=== PATIENT | female | born 1985 | race Caucasian/White ===

== ENCOUNTER 2019-07-04 15:15 | Outpatient (CLI) | payer OTHER ==
[2019-07-04 15:55] LABS: ABSOLUTE EOSINOPHILS # (AUTO) 0.1 10^3/uL (0.0-0.6); ABSOLUTE LYMPHOCYTES (AUTO) 1.9 10^3/uL (0.5-4.7); ABSOLUTE MONOCYTES (AUTO) 0.6 10^3/uL (0.1-1.4); ABSOLUTE NEUT (AUTO) 8.4 10^3/uL (1.7-8.2); BASOPHILS % (AUTO) 0.4 % (0-2); EOSINOPHILS % (AUTO) 0.5 % (0-6); HEMOGLOBIN 12.4 g/dL (12.0-15.5); LYMPHOCYTES % (AUTO) 16.9 % (13-45); MEAN CORPUSCULAR HEMOGLOBIN 30.5 pg (27.0-33.4); MEAN CORPUSCULAR HGB CONC 35.6 g/dL (32.0-36.0); MEAN CORPUSCULAR VOLUME 86 fl (80-97); MONOCYTES % (AUTO) 5.8 % (3-13); PLATELET COUNT 289 10^3/uL (150-450); RED BLOOD COUNT 4.08 10^6/uL (3.72-5.28); RED CELL DISTRIBUTION WIDTH 12.8 % (11.5-14.0); SEGMENTED NEUTROPHILS % (AUTO) 76.4 % (42-78); TOTAL CELLS COUNTED % (AUTO) 100 %
[2019-07-04 15:56] LABS: APPEARANCE,URINE SLIGHTLY-CLOUDY; BILIRUBIN,URINE NEGATIVE (NEGATIVE); CALCIUM OXALATE CRYSTALS,URINE MODERATE /HPF; COLOR,URINE YELLOW; GLUCOSE, URINE 50 mg/dL (NEGATIVE); KETONES,URINE NEGATIVE (NEGATIVE); LEUKOCYTE ESTERASE,URINE NEGATIVE (NEGATIVE); NITRITE,URINE NEGATIVE (NEGATIVE); PROTEIN,URINE NEGATIVE (NEGATIVE); URINE SPECIFIC GRAVITY 1.021
[2019-07-04 16:14] LABS: URINE AMPHETAMINES SCREEN NEGATIVE; URINE BARBITURATES SCREEN NEGATIVE; URINE BENZODIAZEPINES SCREEN NEGATIVE; URINE COCAINE SCREEN NEGATIVE; URINE MARIJUANA (THC) SCREEN NEGATIVE; URINE METHADONE SCREEN NEGATIVE; URINE PHENCYCLIDINE SCREEN NEGATIVE
[2019-07-04 16:14] LABS: ALBUMIN 3.1 g/dL (3.5-5.0); ALKALINE PHOSPHATASE 115 U/L (38-126); ANION GAP 8 (5-19); ASPARTATE AMINO TRANSFERASE 21 U/L (14-36); BILIRUBIN,TOTAL 0.5 mg/dL (0.2-1.3); BLOOD UREA NITROGEN 10 mg/dL (7-20); CALCIUM 9.3 mg/dL (8.4-10.2); CARBON DIOXIDE 20 mmol/L (22-30); CHLORIDE 105 mmol/L (98-107); GLUCOSE 95 mg/dL (75-110); URIC ACID 4.9 mg/dL (2.5-6.2)
[2019-07-04 17:38] LABS: UR PRO/CREAT RATIO RESULT 0.1 mg/mg (0.0-0.2); URINE CREATININE 148.8 mg/dL (16-327); URINE PROTEIN 14.9 mg/dL (<12)
== END 2019-07-04 17:49 | disposition home or self-care (01) ==
LOC: LC 15:15
PROVIDERS: ATTEND Obstetrics & Gynecology
DX: O16.3 Unspecified maternal hypertension, third trimester (principal); Z3A.34 34 weeks gestation of pregnancy
CPT/HCPCS: 36415; 59025; 80053; 80307; 81001; 82570; 83615; 84156; 84550; 85025

== ENCOUNTER 2019-07-08 16:02 | Outpatient (CLI) | payer OTHER ==
--- NOTE | 2019-07-08 18:39 | Non Stress Test Report ---
Non Stress Test Datetime Report Generated by CPN: 07/08/2019 18:39 DEMOGRAPHIC Test Number: 2 Test Number: 1 EGA NST: 35.1 EGA NST: 34.4 INDICATION Indication for Study (NST) Other: Labor check order by physician; Pree workup; IUP 34.4 VITAL SIGNS Temperature - NST: 98.3 Temperature - NST: 98.2 Pulse - NST: 90 Pulse - NST: 96 RESP - NST: 16 RESP - NST: 18 NBPSYS NST: 131 NBPSYS NST: 126 NBPDIA NST: 82 NBPDIA NST: 76 MONITORING Monitor Explained: Monitor Explained; Test Explained; Patient Verbalized Understanding Monitor Explained: Monitor Explained; Test Explained; Patient Verbalized Understanding Time on Monitor: 07/08/2019 16:23 Time on Monitor: 07/04/2019 15:49 Time off Monitor: 07/08/2019 17:59 Time off Monitor: 07/04/2019 16:45 NST Duration: 96 NST Duration: 56 NST INTERVENTIONS NST Interventions: PO Hydration NST Interventions: PO Hydration Physician Notified NST: NRobertson,CNM Physician Notified NST: A. Hewitt, CNM BABY A: [id number] BABY A Movement : Present Movement : Present Contraction Frequency : None Contraction Frequency : 0 FHR Baseline : 145 FHR Baseline : 140 Accelerations : 15X15 Accelerations : 15X15 Decelerations : None Decelerations : None Variability : Moderate 6-25bpm Variability : Moderate 6-25bpm NST Review: Meets Criteria for Reactive NST NST Review: Questionable if Meets Criteria for Reactive NST NST Review and Verified By : Kristen Lantigua RN NST Review and Verified By : Chris LAUREANO Results: Reactive NST Results: Reactive NST REPORT Report Trigger: Send Report
== END 2019-07-08 17:09 | disposition home or self-care (01) ==
LOC: LC 16:02
PROVIDERS: ATTEND Obstetrics & Gynecology
DX: O13.3 Gestational [pregnancy-induced] hypertension without significant proteinuria, third trimester (principal); Z3A.34 34 weeks gestation of pregnancy
CPT/HCPCS: 59025

== ENCOUNTER 2019-07-12 12:54 | Outpatient (CLI) | payer OTHER ==
[2019-07-12] MEDS ORDERED: BETAMET ACET/BETAMET NA INJ 6 MG/1 ML ONE (13:06)
[2019-07-12] MEDS ORDERED: BETAMET ACET/BETAMET NA INJ 6 MG/1 ML IM ONE (13:10)
[2019-07-12 13:46] LABS: ABSOLUTE BASOPHILS # (AUTO) 0.1 10^3/uL (0.0-0.2); ABSOLUTE LYMPHOCYTES (AUTO) 1.7 10^3/uL (0.5-4.7); BASOPHILS % (AUTO) 0.5 % (0-2); EOSINOPHILS % (AUTO) 0.3 % (0-6); HEMOGLOBIN 12.5 g/dL (12.0-15.5); RED CELL DISTRIBUTION WIDTH 13.1 % (11.5-14.0); TOTAL CELLS COUNTED % (AUTO) 100 %
[2019-07-12 13:48] LABS: APPEARANCE,URINE SLIGHTLY-CLOUDY; BILIRUBIN,URINE NEGATIVE (NEGATIVE); CALCIUM OXALATE CRYSTALS,URINE RARE /HPF; COLOR,URINE YELLOW; GLUCOSE, URINE NEGATIVE (NEGATIVE); KETONES,URINE 80 mg/dL (NEGATIVE); LEUKOCYTE ESTERASE,URINE TRACE (NEGATIVE); NITRITE,URINE NEGATIVE (NEGATIVE); PROTEIN,URINE NEGATIVE (NEGATIVE); URINE SPECIFIC GRAVITY 1.014; UROBILINOGEN,URINE NEGATIVE mg/dL (<2.0)
[2019-07-12 14:04] LABS: URINE AMPHETAMINES SCREEN NEGATIVE; URINE BARBITURATES SCREEN NEGATIVE; URINE BENZODIAZEPINES SCREEN NEGATIVE; URINE COCAINE SCREEN NEGATIVE; URINE MARIJUANA (THC) SCREEN NEGATIVE; URINE METHADONE SCREEN NEGATIVE; URINE PHENCYCLIDINE SCREEN NEGATIVE
[2019-07-12 14:05] LABS: ABSOLUTE MONOCYTES (AUTO) 0.5 10^3/uL (0.1-1.4); ABSOLUTE NEUT (AUTO) 10.9 10^3/uL (1.7-8.2); HEMATOCRIT 35.4 % (36.0-47.0); MEAN CORPUSCULAR HEMOGLOBIN 29.9 pg (27.0-33.4); MEAN CORPUSCULAR HGB CONC 35.2 g/dL (32.0-36.0); MEAN CORPUSCULAR VOLUME 85 fl (80-97); MONOCYTES % (AUTO) 3.5 % (3-13); PLATELET COUNT 258 10^3/uL (150-450); RED BLOOD COUNT 4.17 10^6/uL (3.72-5.28); SEGMENTED NEUTROPHILS % (AUTO) 82.7 % (42-78); WHITE BLOOD COUNT 13.1 10^3/uL (4.0-10.5)
[2019-07-12 14:08] LABS: UR PRO/CREAT RATIO RESULT 0.3 mg/mg (0.0-0.2); URINE CREATININE 72.5 mg/dL (16-327); URINE PROTEIN 18.7 mg/dL (<12)
[2019-07-12 14:11] LABS: ALBUMIN 3.2 g/dL (3.5-5.0); ALKALINE PHOSPHATASE 132 U/L (38-126); ANION GAP 9 (5-19); ASPARTATE AMINO TRANSFERASE 25 U/L (14-36); BILIRUBIN,TOTAL 0.7 mg/dL (0.2-1.3); BLOOD UREA NITROGEN 14 mg/dL (7-20); CALCIUM 9.6 mg/dL (8.4-10.2); CARBON DIOXIDE 19 mmol/L (22-30); CHLORIDE 103 mmol/L (98-107); GLUCOSE 84 mg/dL (75-110); POTASSIUM 4.4 mmol/L (3.6-5.0); TOTAL PROTEIN 6.6 g/dL (6.3-8.2); URIC ACID 5.4 mg/dL (2.5-6.2)
[2019-07-12 16:12] LABS: CHLAM PCR NOT DETECTED (NOT DETECT)
== END 2019-07-12 14:28 | disposition home or self-care (01) ==
LOC: LC 12:54
PROVIDERS: ATTEND Obstetrics & Gynecology
DX: O13.3 Gestational [pregnancy-induced] hypertension without significant proteinuria, third trimester (principal); Z3A.35 35 weeks gestation of pregnancy
CPT/HCPCS: 36415; 83615; 84156; 84550; 82570; 85025; 80053; 81001; 87081; 80307; 87491; 87591; 59025; J0702; 96372

== ENCOUNTER 2019-07-20 17:58 | Outpatient (CLI) | payer OTHER ==
[2019-07-20 18:56] LABS: APPEARANCE,URINE SLIGHTLY-CLOUDY; BILIRUBIN,URINE NEGATIVE (NEGATIVE); COLOR,URINE YELLOW; GLUCOSE, URINE NEGATIVE (NEGATIVE); KETONES,URINE 80 mg/dL (NEGATIVE); LEUKOCYTE ESTERASE,URINE NEGATIVE (NEGATIVE); NITRITE,URINE NEGATIVE (NEGATIVE); PROTEIN,URINE NEGATIVE (NEGATIVE); URINE SPECIFIC GRAVITY 1.013; UROBILINOGEN,URINE NEGATIVE mg/dL (<2.0)
[2019-07-20 19:00] LABS: ABSOLUTE BASOPHILS # (AUTO) 0.1 10^3/uL (0.0-0.2); ABSOLUTE EOSINOPHILS # (AUTO) 0.1 10^3/uL (0.0-0.6); ABSOLUTE LYMPHOCYTES (AUTO) 2.3 10^3/uL (0.5-4.7); ABSOLUTE MONOCYTES (AUTO) 0.6 10^3/uL (0.1-1.4); BASOPHILS % (AUTO) 0.5 % (0-2); EOSINOPHILS % (AUTO) 0.7 % (0-6); HEMATOCRIT 35.9 % (36.0-47.0); HEMOGLOBIN 12.2 g/dL (12.0-15.5); LYMPHOCYTES % (AUTO) 20.9 % (13-45); MEAN CORPUSCULAR HEMOGLOBIN 29.2 pg (27.0-33.4); MEAN CORPUSCULAR HGB CONC 34.1 g/dL (32.0-36.0); MEAN CORPUSCULAR VOLUME 86 fl (80-97); MONOCYTES % (AUTO) 5.5 % (3-13); PLATELET COUNT 268 10^3/uL (150-450); RED BLOOD COUNT 4.18 10^6/uL (3.72-5.28); RED CELL DISTRIBUTION WIDTH 13.4 % (11.5-14.0); SEGMENTED NEUTROPHILS % (AUTO) 72.4 % (42-78); TOTAL CELLS COUNTED % (AUTO) 100 %; WHITE BLOOD COUNT 11.1 10^3/uL (4.0-10.5)
[2019-07-20 19:10] LABS: URINE AMPHETAMINES SCREEN NEGATIVE; URINE BARBITURATES SCREEN NEGATIVE; URINE BENZODIAZEPINES SCREEN NEGATIVE; URINE COCAINE SCREEN NEGATIVE; URINE MARIJUANA (THC) SCREEN NEGATIVE; URINE METHADONE SCREEN NEGATIVE; URINE PHENCYCLIDINE SCREEN NEGATIVE
[2019-07-20 19:14] LABS: UR PRO/CREAT RATIO RESULT 0.1 mg/mg (0.0-0.2); URINE CREATININE 92.3 mg/dL (16-327); URINE PROTEIN 11.7 mg/dL (<12)
[2019-07-20 19:22] LABS: ALKALINE PHOSPHATASE 155 U/L (38-126); ANION GAP 11 (5-19); ASPARTATE AMINO TRANSFERASE 35 U/L (14-36); BILIRUBIN,TOTAL 0.8 mg/dL (0.2-1.3); BLOOD UREA NITROGEN 10 mg/dL (7-20); CALCIUM 8.9 mg/dL (8.4-10.2); CARBON DIOXIDE 17 mmol/L (22-30); CHLORIDE 103 mmol/L (98-107); GLUCOSE 115 mg/dL (75-110); TOTAL PROTEIN 5.8 g/dL (6.3-8.2); URIC ACID 6.2 mg/dL (2.5-6.2)
--- NOTE | 2019-07-20 19:48 | Non Stress Test Report ---
Non Stress Test Datetime Report Generated by CPN: 07/20/2019 19:48 DEMOGRAPHIC EGA NST: 36.1 VITAL SIGNS Temperature - NST: 98.6 Pulse - NST: 100 RESP - NST: 18 NBPSYS NST: 134 NBPDIA NST: 74 MONITORING Monitor Explained: Monitor Explained; Test Explained; Patient Verbalized Understanding Time on Monitor: 07/20/2019 18:20 Time off Monitor: 07/20/2019 19:43 NST Duration: 83 NST INTERVENTIONS NST Interventions: PO Hydration Physician Notified NST: Dr. Courtney BABY A Movement : Present Contraction Frequency : none FHR Baseline : 130 Accelerations : 15X15 Variability : Moderate 6-25bpm NST Review: Meets Criteria for Reactive NST NST Review and Verified By : Gurvinder Davisonk RN NST Results: Reactive NST REPORT Report Trigger: Send Report
== END 2019-07-20 19:49 | disposition home or self-care (01) ==
LOC: LC 17:58
PROVIDERS: ATTEND Student in an Organized Health Care Education/Training Program
DX: Z34.83 Encounter for supervision of other normal pregnancy, third trimester (principal); Z3A.36 36 weeks gestation of pregnancy; Z88.0 Allergy status to penicillin
CPT/HCPCS: 36415; 59025; 80053; 80307; 81001; 82570; 83615; 84156; 84550; 85025

== ENCOUNTER 2019-07-27 17:46 | Inpatient (IN) | payer OTHER ==
[2019-07-27] MEDS ORDERED: DINOPROSTONE 10 MG VAGINAL INSERT.SR ONE (18:47)
[2019-07-27] MEDS ORDERED: DINOPROSTONE 10 MG VAGINAL INSERT.SR PV PRN (18:57)
[2019-07-27] MEDS ORDERED: RINGERS SOLUTION,LACTATED 1,000 ML IV ONE (18:57)
[2019-07-27 19:56] LABS: ABSOLUTE EOSINOPHILS # (AUTO) 0.1 10^3/uL (0.0-0.6); ABSOLUTE LYMPHOCYTES (AUTO) 1.9 10^3/uL (0.5-4.7); ABSOLUTE MONOCYTES (AUTO) 0.7 10^3/uL (0.1-1.4); ABSOLUTE NEUT (AUTO) 8.6 10^3/uL (1.7-8.2); BASOPHILS % (AUTO) 0.4 % (0-2); EOSINOPHILS % (AUTO) 0.4 % (0-6); HEMATOCRIT 34.4 % (36.0-47.0); HEMOGLOBIN 11.7 g/dL (12.0-15.5); LYMPHOCYTES % (AUTO) 17.2 % (13-45); MEAN CORPUSCULAR HEMOGLOBIN 29.3 pg (27.0-33.4); MEAN CORPUSCULAR HGB CONC 33.9 g/dL (32.0-36.0); MEAN CORPUSCULAR VOLUME 86 fl (80-97); MONOCYTES % (AUTO) 6.2 % (3-13); PLATELET COUNT 237 10^3/uL (150-450); RED BLOOD COUNT 3.98 10^6/uL (3.72-5.28); RED CELL DISTRIBUTION WIDTH 13.5 % (11.5-14.0); SEGMENTED NEUTROPHILS % (AUTO) 75.8 % (42-78); TOTAL CELLS COUNTED % (AUTO) 100 %; WHITE BLOOD COUNT 11.3 10^3/uL (4.0-10.5)
[2019-07-27 21:58] LABS: APPEARANCE,URINE CLEAR; BILIRUBIN,URINE NEGATIVE (NEGATIVE); COLOR,URINE YELLOW; GLUCOSE, URINE NEGATIVE (NEGATIVE); KETONES,URINE 20 mg/dL (NEGATIVE); LEUKOCYTE ESTERASE,URINE NEGATIVE (NEGATIVE); NITRITE,URINE NEGATIVE (NEGATIVE); PROTEIN,URINE NEGATIVE (NEGATIVE); URINE SPECIFIC GRAVITY 1.015; UROBILINOGEN,URINE NEGATIVE mg/dL (<2.0)
[2019-07-27 22:14] LABS: URINE AMPHETAMINES SCREEN NEGATIVE; URINE BARBITURATES SCREEN NEGATIVE; URINE BENZODIAZEPINES SCREEN NEGATIVE; URINE COCAINE SCREEN NEGATIVE; URINE MARIJUANA (THC) SCREEN NEGATIVE; URINE METHADONE SCREEN NEGATIVE; URINE PHENCYCLIDINE SCREEN NEGATIVE
--- NOTE | 2019-07-28 00:27 | Admission Physical ---
Datetime Report Generated by CPN: 07/28/2019 00:27 CURRENT ADMISSION Chief Complaint: Scheduled Induction of Labor Chief Complaint Other: at 37.2 wks EGA for IOL d/t complicated by gTHN, A2GDM Reports good FM, NO LOF or regular contractions Indication for Induction: Gestational HTN; Maternal Diabetes Admit Impression : Term, Intrauterine ; Induction of Labor Admit Plan: Admit to Unit; Initiate Labor Induction Protocol ALLERGIES Medication Allergies: Yes Medication Allergies: Penicillins (07/27/2019); azithromycin (07/27/2019); amoxicillin (07/27/2019) Latex: No Latex Allergies OBSTETRICAL HISTORY EDC: 08/16/2019 00:00 : 2 Para: 1 Term: 1 : 0 SAB: 0 IAB: 0 Livin Cesareans: 0 VBACs: 0 Multiple Births: 0 Gestational Diabetes: No Rh Sensitization: No Incompetent Cervix: No LINDA: No Infertility: No ART Treatment: No Uterine Anomaly: No IUGR: No Hx Previous C/S: No Macrosomia: No Hx Loss/Stillborn: No PIH: No Hx : No Placenta Previa/Abruption: No Depression/PP Depression: Yes PTL/PROM: No Post Hemorrhage: No Current Procedures: Ultrasound; NST Obstetrical History Comments: G1-08/24/2010, 39 weeks, vaginal, Induction 8 hours G2-Current SEE RECORDS Alcohol: No Marijuana : No Cocaine: No Other Illicit Drugs: No Cigarettes: Never Smoker. 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 Surgery: No Heart Disease: No Hosp/Surgery: Yes Autoimmune Disorder: No Anesthetic Complications: Yes Kidney Disease: No Abnormal Pap Smear: No Neuro/Epilepsy: No Psychiatric Disorders: No Other Medical Diseases: No Hepatitis/Liver Disease: No Significant Family History: Unknown Varicosities/Phlebitis: No Trauma/Violence : Unknown Thyroid Dysfunction: No Medical History Comments: Anxiety/ Depression Hospitalized with childbirth last Epidural dropped BP and gave her a spinal headache INFECTIOUS HISTORY Gonorrhea: No Genital Herpes: No Chlamydia: No Tuberculosis: No Syphilis: No Hepatitis: No HIV/AIDS Exposure: No Rash or Viral Illness: No HPV: No PHYSICAL EXAM General: Normal HEENT: Normal Neurologic: Normal Thyroid: Normal Heart: Normal Lungs: Normal Breast: Normal Back: Normal Abdomen: Normal Genitourinary Exam: Normal Extremities: Normal DTRs: Normal Pelvic Type: Adequate Vital Signs: Reviewed; Within Normal Limits VAGINAL EXAM Dilatation: 0 Effacement: 0 Station: -3 MEMBRANES Membranes: Intact FETUS A EGA: 37.2 Monitoring: External US FHR- Baseline: 145 Variability: Moderate 6-25bpm Accelerations: 15X15 Decelerations: None FHR Category: Category I Presentation: Vertex Admit Comment: at 37.2 wks EGA for IOL d/t gHTN and A2GDM on Glyburide at bedtime -admit to LDR -NPO and IVFs -GBS negative -Cervix cl/th/hi Cervidil placed at 1845 -Monitor BS Q6 hours -Desires epidural when in active labor -Anticipate PLANS FOR LABOR AND DELIVERY Labor and Delivery: None Feeding Preference: Breast Benefit of Breast Feed Discussed: Yes Circumcision: N/A INFORMED CONSENT Informed Consent Obtained: Vaginal Delivery; Section Delivery; Induction of Labor; Vacuum/Forceps Assist; Risks, Benefits and Alternatives Discussed Signature: with User ID: [email or web address] : with User ID: [email or web address]
[2019-07-28] MEDS ORDERED: OXYTOCIN/0.9 % SODIUM CHLORIDE 30 UNIT/500 ML RTUINJ ONE ×2 (11:48→17:35)
[2019-07-28] MEDS ORDERED: OXYTOCIN/0.9 % SODIUM CHLORIDE 30 UNIT/500 ML RTUINJ IV PRN ×3 (12:19→19:25)
[2019-07-28] MEDS ORDERED: EPHEDRINE SULFATE INJ 50 MG/1 ML AMPULE ONE (15:57)
[2019-07-28] MEDS ORDERED: BUPIVACAINE HCL 0.25 % INJ/PF (2.5 MG/1 ML) 30 ML VIAL ONE (15:58)
[2019-07-28] MEDS ORDERED: FENTANYL/BUPIVACAINE/NS/PF 300 MCG/150 ML RTUINJ EPI ONE (15:58)
[2019-07-28] MEDS ORDERED: MISOPROSTOL 0.2 MG TABLET ONE ×2 (17:34→19:02)
[2019-07-28] MEDS ORDERED: OXYTOCIN 10 UNIT/ML VIAL ONE (17:34)
[2019-07-28] MEDS ORDERED: LIDOCAINE 1% INJ-PF (10 MG/ML) 30 ML SDV ONE (17:35)
[2019-07-28] MEDS ORDERED: CARBOPROST TROMETHAMINE INJ 250 MCG/1 ML AMPULE ONE (19:05)
[2019-07-28] MEDS ORDERED: ONDANSETRON HCL INJ/PF 4 MG/2 ML SDV ONE (19:15)
[2019-07-28] MEDS ORDERED: MISOPROSTOL 0.1 MG TABLET PR ONE (19:21)
[2019-07-28] MEDS ORDERED: NORMAL SALINE 250 ML IV PRN (19:21)
[2019-07-28] MEDS ORDERED: MAGNESIUM HYDROXIDE SUSP 30 ML UDCUP PO PRN (19:25)
[2019-07-28] MEDS ORDERED: DIPHENHYDRAMINE HCL 25 MG CAPSULE PO PRN (19:25)
[2019-07-28] MEDS ORDERED: PROMETHAZINE HCL 25 MG TABLET PO PRN (19:25)
[2019-07-28] MEDS ORDERED: GLYCERIN/WITCH HAZEL LEAF 1 EACH MED..WIPE TP PRN (19:25)
[2019-07-28] MEDS ORDERED: ACETAMINOPHEN 325 MG TABLET PO PRN (19:25)
[2019-07-28] MEDS ORDERED: ZOLPIDEM TARTRATE 5 MG TABLET PO PRN (19:25)
[2019-07-28] MEDS ORDERED: MEASLES,MUMPS&RUBELLA VACC/PF 0.5 ML VIAL SUBCUT PRN (19:25)
[2019-07-28] MEDS ORDERED: NA PHOS,M-B/NA PHOS,DI-BA (ADULT) 133 ML ENEMA PR PRN (19:25)
[2019-07-28] MEDS ORDERED: CLINDAMYCIN 900 MG/D5W RTU 900 MG/50 ML RTUPB IV ONE (19:25)
[2019-07-28] MEDS ORDERED: PROMETHAZINE HCL INJ 25 MG/1 ML VIAL IV PRN (19:25)
[2019-07-28] MEDS ORDERED: PSEUDOEPHEDRINE HCL 30 MG TABLET PO PRN (19:25)
[2019-07-28] MEDS ORDERED: DIBUCAINE 1% OINTMENT 28 GM TP PRN (19:25)
[2019-07-28] MEDS ORDERED: ACETAMINOPHEN WITH CODEINE #3 TABLET PO PRN ×2 (19:25)
[2019-07-28] MEDS ORDERED: DIPH/PERTUSS(ACELL)/TETANUS VAC/PF 0.5 ML SYR (>=10YO) IM PRN (19:25)
[2019-07-28] MEDS ORDERED: PROMETHAZINE HCL 25 MG SUPP.RECT PR PRN (19:25)
[2019-07-28] MEDS ORDERED: BENZOCAINE/MENTHOL AEROSOL SPRAY 56 ML TOP PRN (19:25)
[2019-07-28 19:52] LABS: HEMATOCRIT 35.8 % (36.0-47.0); HEMOGLOBIN 11.9 g/dL (12.0-15.5); MEAN CORPUSCULAR HEMOGLOBIN 29.1 pg (27.0-33.4); MEAN CORPUSCULAR HGB CONC 33.3 g/dL (32.0-36.0); MEAN CORPUSCULAR VOLUME 87 fl (80-97); PLATELET COUNT 283 10^3/uL (150-450); WHITE BLOOD COUNT 16.7 10^3/uL (4.0-10.5)
[2019-07-28 20:02] LABS: FIBRINOGEN 487 mg/dL (209-497); INTERNATIONAL RATION (INR) 1.06; PARTIAL THROMBOPLASTIN TIME 23.5 SEC (23.5-35.8); PROTHROMBIN TIME 13.8 SEC (11.4-15.4)
--- NOTE | 2019-07-28 20:03 | Delivery Summary ---
Del Sum A-C Datetime Report Generated by CPN: 07/28/2019 20:02 DELIVERY PERSONNEL DELIVERY PERSONNEL: [id number] Delivery Doctor:: Rhoda Courtney MD COMMUTATOR OPERATOR:: normile, susan Labor and Delivery Nurse:: CLAYTON Freeman Labor and Delivery Nurse:: CLAYTON Pineda Nursery Nurse:: Patience Sparks RN Nursery Nurse:: ANDREW Perdomo Tech/SUPERVISOR PAPER MACHINE: Alycia Roach, BOBJ DEVELOPER MATERNAL INFORMATION Delivery Anesthesia: Epidural Medications After Delivery: Pitocin 30 Units in 500ml NS/D5W; Cytotec 1000mcg Per Rectum/Vagina Meds After Delivery Comment: pitocin 30 units/500ml nss Estimated Blood Loss (ml): 1050 Delivery QBL Comment: pph Maternal Complications: None Other Maternal Complications: A2GDM, GHTN Provider Comments: VMI delivered in [place] presentation with nuchal cord delivered through. Shoulders and body delivered without difficulty. Cord doubly clamped and cut and infant to maternal abdomen. Placenta delivered intact spontaneously. No perineal lacerations. Uterine atony initially improved straight cath. Pitocin doubled and Cytotec requested. Cytotec placed and uterine atony improved then lower uterine segment atony noted and Intrauterine hemabate placed. Nick to gravity will remain. Stat labs ordered. Good hemostasis after uterine atony resolved. Mother and baby stable upon provider leaving the room. LABOR SUMMARY EDC: 08/16/2019 00:00 No. Babies in Womb: 1 Attempted: No Labor Anesthesia: Epidural LABOR INFORMATION Reason for Induction: Gestational Hypertension; Maternal Diabetes Onset of Labor: 07/28/2019 14:30 Complete Dilatation: 07/28/2019 18:50 Cervical Ripening Agents: Cervidil Oxytocin: Induction Group B Beta Strep: 1 NO GROUP B STREPTOCOCCUS RECOVERED Antibiotics # of Doses: 0 Antibiotics Time of Last Dose: 0 Name of Antibiotic Given: 0 Steroids Given: None Reason Steroids Not Administered: Not Applicable MEMBRANES Membranes Rupture Method: Artificial Rupture of Membranes: 07/28/2019 15:23 Length of Rupture (hr): 3.52 Amniotic Fluid Color: Clear Amniotic Fluid Amount: Small Amniotic Fluid Odor: None STAGES OF LABOR Stage 1 hr: 4 Stage 1 min: 20 Stage 2 hr: 0 Stage 2 min: 4 Stage 3 hr: 0 Stage 3 min: 4 Total Time in Labor hr: 4 Total Time in Labor min: 28 VAGINAL DELIVERY Episiotomy: None Laceration #1: None Laceration Extension #1: N/A Laceration Repair: Not Applicable Sponge Count Correct: Yes Sharps Count Correct: Yes CSECTION DELIVERY Primary Indication: N/A Secondary Indication: N/A CSection Incidence: N/A Labor: N/A Elective: N/A CSection Incision: N/A BABY A INFORMATION Infant Delivery Date/Time: 07/28/2019 18:54 Method of Delivery: Vaginal Nurse Controlled Delivery: No Born in Route : No : N/A Forceps: N/A Vacuum Extraction: N/A Shoulder Dystocia : No PRESENTATION/POSITION BABY A Presentation: Cephalic Cephalic Presentation: Vertex Vertex Position: Right Occipital Anterior Breech Presentation: N/A PLACENTA INFORMATION BABY A Placenta Delivery Time : 07/28/2019 18:58 Placenta Method of Delivery: Spontaneous Placenta Status: Delivered SCORES BABY A Heart Rate 1 min: >100 bpm Resp Effort 1 min: Good Cry Reflex Irritability 1 min: Cough or Sneeze or Pulls Away Muscle Tone 1 min: Active Motion Color 1 min: Blue/Pale Resuscitation Effort 1 min: Tactile Stimulation SCORE 1 MIN: 8 Heart Rate 5 min: >100 bpm Resp Effort 5 min: Good Cry Reflex Irritability 5 min: Cough or Sneeze or Pulls Away Muscle Tone 5 min: Active Motion Color 5 min: Body [place], Extremities Blue Resuscitation Effort 5 min: Tactile Stimulation SCORE 5 MIN: 9 INFANT INFORMATION BABY A Gestational Age at Delivery: 37.2 Gestational Status: Early Term- 37- 38.6 Weeks Infant Outcome : Liveborn Infant Condition : Stable Sex: Male IDENTIFICATION BABY A Verification Date/Time: 07/28/2019 19:43 ID Band Number: [id number] Mother's Name Verified: Yes Infant RN Verifying : E. Bolivarlek RN/ J. Field RN WEIGHT/LENGTH BABY A Birthweight (gm): 2960 Weight (lb): 6 Weight (oz): 8 Length (in): 18.00 Length (cm): 45.72 CORD INFORMATION BABY A No. Cord Vessels: 3 Nuchal Cord : Around Neck x1, Tight Cord Blood Taken: Yes-For Storage (Mom's Blood type +) Suction: None ASSESSMENT BABY A Infant Complications: None Physical Findings at Delivery: Within Normal Limits Respirations: Appears Normal Skin to Skin: Yes Legal Researcher/ALS Called : No Care By: Marshall Banuelos [place] Transferred To: Remains with Mother SIGNATURES Signature: with User ID: [email or web address]
[2019-07-28 20:05] LABS: D-DIMER 2.76 ug/mL (0.00-0.50)
[2019-07-28 20:10] LABS: ALKALINE PHOSPHATASE 179 U/L (38-126); ANION GAP 9 (5-19); ASPARTATE AMINO TRANSFERASE 41 U/L (14-36); BLOOD UREA NITROGEN 9 mg/dL (7-20); CALCIUM 9.2 mg/dL (8.4-10.2); CARBON DIOXIDE 17 mmol/L (22-30); CHLORIDE 107 mmol/L (98-107); GLUCOSE 97 mg/dL (75-110); POTASSIUM 4.3 mmol/L (3.6-5.0)
[2019-07-28] MEDS ORDERED: ONDANSETRON HCL INJ/PF 4 MG/2 ML SDV IV ONE (20:49)
[2019-07-28] MEDS: CARBOPROST TROMETHAMINE INJ 250 MCG/1 ML AMPULE IM SCH (22:32)
[2019-07-28] MEDS: IBUPROFEN 800 MG TABLET PO SCH (23:01)
[2019-07-28] MEDS: FAMOTIDINE 20 MG TABLET PO SCH (23:03)
[2019-07-28 23:27] LABS: HEMATOCRIT 29.3 % (36.0-47.0); MEAN CORPUSCULAR HEMOGLOBIN 29.5 pg (27.0-33.4); MEAN CORPUSCULAR HGB CONC 34.1 g/dL (32.0-36.0); MEAN CORPUSCULAR VOLUME 86 fl (80-97); PLATELET COUNT 226 10^3/uL (150-450); RED BLOOD COUNT 3.39 10^6/uL (3.72-5.28); RED CELL DISTRIBUTION WIDTH 13.6 % (11.5-14.0); WHITE BLOOD COUNT 21.9 10^3/uL (4.0-10.5)
[2019-07-28 23:56] LABS: ABSOLUTE LYMPHOCYTES# (MANUAL) 1.5 10^3/uL (0.5-4.7); BASOPHILS % (MANUAL) 0 % (0-2); EOSINOPHILS % (MANUAL) 0 % (0-6); LYMPHOCYTES % (MANUAL) 7 % (13-45); MONOCYTES % (MANUAL) 0 % (3-13); SEGMENTED NEUTROPHILS % (MAN) 93 % (42-78); TOTAL CELLS COUNTED 100
[2019-07-28 23:58] LABS: PLATELET COMMENT ADEQUATE; RBC MORPHOLOGY COMMENT NORMO-CYTIC/CHROMIC
[2019-07-29] MEDS: CLINDAMYCIN 900 MG/D5W RTU 900 MG/50 ML RTUPB IV SCH ×3 (02:31→17:27)
[2019-07-29] MEDS: IBUPROFEN 800 MG TABLET PO SCH ×3 (05:57→21:30)
[2019-07-29 06:49] LABS: HEMATOCRIT 27.4 % (36.0-47.0); HEMOGLOBIN 9.2 g/dL (12.0-15.5); MEAN CORPUSCULAR HEMOGLOBIN 29.3 pg (27.0-33.4); MEAN CORPUSCULAR HGB CONC 33.8 g/dL (32.0-36.0); MEAN CORPUSCULAR VOLUME 87 fl (80-97); PLATELET COUNT 226 10^3/uL (150-450); RED BLOOD COUNT 3.15 10^6/uL (3.72-5.28); RED CELL DISTRIBUTION WIDTH 14.2 % (11.5-14.0); WHITE BLOOD COUNT 17.4 10^3/uL (4.0-10.5)
[2019-07-29] MEDS: CARBOPROST TROMETHAMINE INJ 250 MCG/1 ML AMPULE IM SCH (07:48)
--- NOTE | 2019-07-29 09:08 | PDOC PROGRESS REPORT ---
Subjective-OB Progress Note for:: 07/29/19 Subjective: Doing well, no c/o, eating bkf, hsb at BS, scant bleeding, voiding Physical Exam (OB) Vital Signs: Temp Pulse Resp BP Pulse Ox 97.5 F 84 18 125/68 97 07/29/19 08:09 07/29/19 08:09 07/29/19 08:09 07/29/19 08:09 07/29/19 08:09 Intake & Output 07/28/19 07/29/19 07/30/19 06:59 06:59 06:59 Weight 109.5 kg - PIH/Pre-Eclampsia Clonus: Negative Headache: Absent Epigastric Pain: No Visual Changes: No - Lochia Lochia Amount: Small 10-25 ml Lochia Color: Rubra/Red, Serosa/Brown - Abdomen Description: Soft Hernia Present: No Fundal Description: Firm, Midline Fundal Height: u/u - u/2 Objective-Diagnostic Laboratory: 07/29/19 06:05 07/28/19 19:38 07/27/19 07/28/19 07/28/19 19:37 19:38 19:38 WBC 16.7 H RBC 4.10 Hgb 11.9 L Hct 35.8 L MCV 87 MCH 29.1 MCHC 33.3 RDW 14.0 Plt Count 283 Seg Neutrophils % Sodium 133.1 L Potassium 4.3 Chloride 107 Carbon Dioxide 17 L Anion Gap 9 BUN 9 Creatinine 0.58 Est GFR ( Amer) > 60 Glucose 97 Calcium 9.2 Total Bilirubin 1.0 AST 41 H Alkaline Phosphatase 179 H Total Protein 6.0 L Albumin 3.0 L Blood Type A POSITIVE Antibody Screen NEGATIVE 07/28/19 07/29/19 23:20 06:05 WBC 21.9 H 17.4 H RBC 3.39 L 3.15 L Hgb 10.0 L 9.2 L Hct 29.3 L 27.4 L MCV 86 87 MCH 29.5 29.3 MCHC 34.1 33.8 RDW 13.6 14.2 H Plt Count 226 226 Seg Neutrophils % Not Reportable Sodium Potassium Chloride Carbon Dioxide Anion Gap BUN Creatinine Est GFR ( Amer) Glucose Calcium Total Bilirubin AST Alkaline Phosphatase Total Protein Albumin Blood Type Antibody Screen Assessment and Plan(PN) - Assessment and Plan (1) Gestational diabetes mellitus (GDM) controlled on oral hypoglycemic drug Qualifiers: Trimester: second trimester Qualified Code(s): O24.415 - Gestational diabetes mellitus in , controlled by oral hypoglycemic drugs Is this a current diagnosis for this admission?: Yes (2) hemorrhage Qualifiers: hemorrhage type: unspecified Qualified Code(s): O72.1 - Other immediate hemorrhage Is this a current diagnosis for this admission?: Yes (3) Vaginal delivery Is this a current diagnosis for this admission?: Yes (4) Pre-eclampsia Qualifiers: Trimester: third trimester Qualified Code(s): O14.93 - Unspecified pre- eclampsia, third trimester Is this a current diagnosis for this admission?: Yes - Time Spent with Patient Time with patient: Less than 15 minutes Medications reviewed and adjusted accordingly: Yes - Disposition Anticipated Discharge: Home Within: within 48 hours
--- NOTE | 2019-07-29 09:11 | PDOC PROGRESS REPORT ---
Subjective-OB Progress Note for:: 07/29/19 Subjective: Doing well, no c/o, bottle feeding but going to pump also, pain under control, passing gas, eating well, voiding, not wearing binder today Physical Exam (OB) Vital Signs: Temp Pulse Resp BP Pulse Ox 97.5 F 84 18 125/68 97 07/29/19 08:09 07/29/19 08:09 07/29/19 08:09 07/29/19 08:09 07/29/19 08:09 Intake & Output 07/28/19 07/29/19 07/30/19 06:59 06:59 06:59 Weight 109.5 kg - PIH/Pre-Eclampsia Clonus: Negative Headache: Absent Epigastric Pain: No Visual Changes: No - Lochia Lochia Amount: Small 10-25 ml Lochia Color: Rubra/Red, Serosa/Brown - Abdomen Description: Soft Hernia Present: No Fundal Description: Firm, Midline Fundal Height: u/u - u/2 Objective-Diagnostic Laboratory: 07/29/19 06:05 07/28/19 19:38 07/27/19 07/28/19 07/28/19 19:37 19:38 19:38 WBC 16.7 H RBC 4.10 Hgb 11.9 L Hct 35.8 L MCV 87 MCH 29.1 MCHC 33.3 RDW 14.0 Plt Count 283 Seg Neutrophils % Sodium 133.1 L Potassium 4.3 Chloride 107 Carbon Dioxide 17 L Anion Gap 9 BUN 9 Creatinine 0.58 Est GFR ( Amer) > 60 Glucose 97 Calcium 9.2 Total Bilirubin 1.0 AST 41 H Alkaline Phosphatase 179 H Total Protein 6.0 L Albumin 3.0 L Blood Type A POSITIVE Antibody Screen NEGATIVE 07/28/19 07/29/19 23:20 06:05 WBC 21.9 H 17.4 H RBC 3.39 L 3.15 L Hgb 10.0 L 9.2 L Hct 29.3 L 27.4 L MCV 86 87 MCH 29.5 29.3 MCHC 34.1 33.8 RDW 13.6 14.2 H Plt Count 226 226 Seg Neutrophils % Not Reportable Sodium Potassium Chloride Carbon Dioxide Anion Gap BUN Creatinine Est GFR ( Amer) Glucose Calcium Total Bilirubin AST Alkaline Phosphatase Total Protein Albumin Blood Type Antibody Screen Assessment and Plan(PN) - Assessment and Plan (1) Gestational diabetes mellitus (GDM) controlled on oral hypoglycemic drug Qualifiers: Trimester: second trimester Qualified Code(s): O24.415 - Gestational diab etes mellitus in , controlled by oral hypoglycemic drugs Is this a current diagnosis for this admission?: Yes (2) hemorrhage Qualifiers: hemorrhage type: unspecified Qualified Code(s): O72.1 - Other immediate hemorrhage Is this a current diagnosis for this admission?: Yes (3) Vaginal delivery Is this a current diagnosis for this admission?: Yes (4) Pre-eclampsia Qualifiers: Trimester: third trimester Qualified Code(s): O14.93 - Unspecified pre- eclampsia, third trimester Is this a current diagnosis for this admission?: Yes - Time Spent with Patient Time with patient: Less than 15 minutes Medications reviewed and adjusted accordingly: Yes - Disposition Anticipated Discharge: Home Within: within 24 hours
--- NOTE | 2019-07-29 09:26 | PDOC DISCHARGE SUMMARY ---
Impression - Admit/DC Date/PCP Admission Date/Primary Care Provider: 07/27/19 17:46 ROSHAN NOEL MD Discharge Date: 07/29/19 - Discharge Diagnosis (1) Gestational diabetes mellitus (GDM) controlled on oral hypoglycemic drug Is this a current diagnosis for this admission?: Yes (2) hemorrhage Is this a current diagnosis for this admission?: Yes (3) Vaginal delivery Is this a current diagnosis for this admission?: Yes (4) Pre-eclampsia Is this a current diagnosis for this admission?: Yes - Additional Information Resuscitation Status: Full Code Discharge Diet: As Tolerated, Regular Discharge Activity: Activity As Tolerated, No Lifting Over 10 Pounds, No Lifting/Push/Pulling, Pelvic Rest Referrals: ROSHAN NOEL MD [Primary Care Provider] - (rtc 1 week) Prescriptions: Acetaminophen with Codeine [Tylenol #3 Tablet] 1 each PO Q4HP PRN #20 tablet PRN Reason: Ibuprofen [Motrin 800 mg Tablet] 800 mg PO Q8 #30 tablet Home Medications: Pnv No.95/Ferrous Fum/Folic AC [ Caplet] 1 tab PO DAILY 07/04/19 Sertraline HCl [Zoloft 50 mg Tablet] 50 mg PO DAILY 07/04/19 Acetaminophen with Codeine [Tylenol #3 Tablet] 1 each PO Q4HP PRN #20 tablet 07/29/19 Ferrous Sulfate [Feosol 325 mg Tablet] 325 mg PO BID #0 tablet 07/29/19 Ibuprofen [Motrin 800 mg Tablet] 800 mg PO Q8 #30 tablet 07/29/19 HPI Gestational Age: 38.6 Reason(s) for Admission: Onset of Labor, Ceasarean Section-Repeat Procedures: NST, Ultrasound Intrapartum Procedure(s): : Low Cervical, Transverse Hospital Course Hospital Course: routine Post op Results Laboratory Results: WBC 17.4 10^3/uL (4.0-10.5) H 07/29/19 06:05 RBC 3.15 10^6/uL (3.72-5.28) L 07/29/19 06:05 Hgb 9.2 g/dL (12.0-15.5) L 07/29/19 06:05 Hct 27.4 % (36.0-47.0) L 07/29/19 06:05 MCV 87 fl (80-97) 07/29/19 06:05 MCH 29.3 pg (27.0-33.4) 07/29/19 06:05 MCHC 33.8 g/dL (32.0-36.0) 07/29/19 06:05 RDW 14.2 % (11.5-14.0) H 07/29/19 06:05 Plt Count 226 10^3/uL (150-450) 07/29/19 06:05 Lymph % (Auto) Not Reportable 07/28/19 23:20 Fisher % (Auto) Not Reportable 07/28/19 23:20 Eos % (Auto) Not Reportable 07/28/19 23:20 Baso % (Auto) Not Reportable 07/28/19 23:20 Absolute Neuts (auto) Not Reportable 07/28/19 23:20 Absolute Lymphs (auto) Not Reportable 07/28/19 23:20 Absolute Monos (auto) Not Reportable 07/28/19 23:20 Absolute Eos (auto) Not Reportable 07/28/19 23:20 Absolute Basos (auto) Not Reportable 07/28/19 23:20 Total Counted 100 07/28/19 23:20 Seg Neutrophils % Not Reportable 07/28/19 23:20 Seg Neuts % (Manual) 93 % (42-78) H 07/28/19 23:20 Lymphocytes % (Manual) 7 % (13-45) L 07/28/19 23:20 Monocytes % (Manual) 0 % (3-13) L 07/28/19 23:20 Eosinophils % (Manual) 0 % (0-6) 07/28/19 23:20 Basophils % (Manual) 0 % (0-2) 07/28/19 23:20 Abs Neuts (Manual) 20.4 10^3/uL (1.7-8.2) H 07/28/19 23:20 Abs Lymphs (Manual) 1.5 10^3/uL (0.5-4.7) 07/28/19 23:20 Abs Monocytes (Manual) 0.0 10^3/uL (0.1-1.4) L 07/28/19 23:20 Absolute Eos (Manual) 0.0 10^3/uL (0.0-0.6) 07/28/19 23:20 Abs Basophils (Manual) 0.0 10^3/uL (0.0-0.2) 07/28/19 23:20 Platelet Comment ADEQUATE 07/28/19 23:20 RBC Morph Comment NORMO-CYTIC/CHROMIC 07/28/19 23:20 PT 13.8 SEC (11.4-15.4) 07/28/19 19:38 INR 1.06 07/28/19 19:38 APTT 23.5 SEC (23.5-35.8) 07/28/19 19:38 Fibrinogen 487 mg/dL (209-497) 07/28/19 19:38 D-Dimer 2.76 ug/mL (0.00-0.50) H 07/28/19 19:38 Sodium 133.1 mmol/L (137-145) L 07/28/19 19:38 Potassium 4.3 mmol/L (3.6-5.0) 07/28/19 19:38 Chloride 107 mmol/L (98-107) 07/28/19 19:38 Carbon Dioxide 17 mmol/L (22-30) L 07/28/19 19:38 Anion Gap 9 (5-19) 07/28/19 19:38 BUN 9 mg/dL (7-20) 07/28/19 19:38 Creatinine 0.58 mg/dL (0.52-1.25) 07/28/19 19:38 Est GFR ( Amer) > 60 (>60) 07/28/19 19:38 Est GFR (MDRD) Non-Af > 60 (>60) 07/28/19 19:38 Glucose 97 mg/dL (75-110) 07/28/19 19:38 Calcium 9.2 mg/dL (8.4-10.2) 07/28/19 19:38 Total Bilirubin 1.0 mg/dL (0.2-1.3) 07/28/19 19:38 Direct Bilirubin 0.0 mg/dL (0.0-0.4) 07/28/19 19:38 Neonat Total Bilirubin Not Reportable 07/28/19 19:38 Neonat Direct Bilirubin Not Reportable 07/28/19 19:38 Neonat Indirect Bili Not Reportable 07/28/19 19:38 AST 41 U/L (14-36) H 07/28/19 19:38 ALT 52 U/L (<35) H 07/28/19 19:38 Alkaline Phosphatase 179 U/L (38-126) H 07/28/19 19:38 Total Protein 6.0 g/dL (6.3-8.2) L 07/28/19 19:38 Albumin 3.0 g/dL (3.5-5.0) L 07/28/19 19:38 Urine Color YELLOW 07/27/19 18:20 Urine Appearance CLEAR 07/27/19 18:20 Urine pH 5.0 (5.0-9.0) 07/27/19 18:20 Ur Specific [place] 1.015 07/27/19 18:20 Urine Protein NEGATIVE mg/dL (NEGATIVE) 07/27/19 18:20 Urine Glucose (UA) NEGATIVE mg/dL (NEGATIVE) 07/27/19 18:20 Urine Ketones 20 mg/dL (NEGATIVE) H 07/27/19 18:20 Urine Blood LARGE (NEGATIVE) H 07/27/19 18:20 Urine Nitrite NEGATIVE (NEGATIVE) 07/27/19 18:20 Urine Bilirubin NEGATIVE (NEGATIVE) 07/27/19 18:20 Urine Urobilinogen NEGATIVE mg/dL (<2.0) 07/27/19 18:20 Ur Leukocyte Esterase NEGATIVE (NEGATIVE) 07/27/19 18:20 Urine Ascorbic Acid NEGATIVE (NEGATIVE) 07/27/19 18:20 Urine Opiates Screen NEGATIVE 07/27/19 18:20 Urine Methadone Screen NEGATIVE 07/27/19 18:20 Ur Barbiturates Screen NEGATIVE 07/27/19 18:20 Ur Phencyclidine Scrn NEGATIVE 07/27/19 18:20 Ur Amphetamines Screen NEGATIVE 07/27/19 18:20 U Benzodiazepines Scrn NEGATIVE 07/27/19 18:20 Urine Cocaine Screen NEGATIVE 07/27/19 18:20 U Marijuana (THC) Screen NEGATIVE 07/27/19 18:20 RPR NONREACTIVE (NONREACTIVE) 07/27/19 19:37 Blood Type A POSITIVE 07/27/19 19:37 Blood Type Confirm A POSITIVE 07/28/19 19:38 Antibody Screen NEGATIVE 07/27/19 19:37 Crossmatch See Detail 07/27/19 19:37 Plan Health Concerns: post op pain Plan of Treatment: discharge home, no THC, ambulate Goals: no complications Time Spent: Less than 30 Minutes
[2019-07-29] MEDS: FAMOTIDINE 20 MG TABLET PO SCH ×2 (09:42→21:30)
[2019-07-29] MEDS: PRENATAL VITAMIN W DHA CAPSULE PO SCH (09:42)
[2019-07-29] MEDS: FERROUS SULFATE 325 MG TABLET PO SCH ×2 (09:43→17:27)
[2019-07-29] MEDS: DOCUSATE SODIUM 100 MG CAPSULE PO SCH ×2 (09:43→17:27)
[2019-07-29] MEDS: SENNOSIDES/DOCUSATE 8.6-50 MG 1 EACH TABLET PO SCH (09:43)
[2019-07-30] MEDS: CLINDAMYCIN 900 MG/D5W RTU 900 MG/50 ML RTUPB IV SCH ×2 (02:10→09:46)
[2019-07-30] MEDS: IBUPROFEN 800 MG TABLET PO SCH ×2 (05:33→14:02)
[2019-07-30 08:02] VITALS: BP 112/50
[2019-07-30] MEDS: DOCUSATE SODIUM 100 MG CAPSULE PO SCH (09:44)
[2019-07-30] MEDS: PRENATAL VITAMIN W DHA CAPSULE PO SCH (09:44)
[2019-07-30] MEDS: FERROUS SULFATE 325 MG TABLET PO SCH (09:45)
[2019-07-30] MEDS: SENNOSIDES/DOCUSATE 8.6-50 MG 1 EACH TABLET PO SCH (09:45)
[2019-07-30] MEDS: FAMOTIDINE 20 MG TABLET PO SCH (09:46)
--- NOTE | 2019-07-30 10:30 | PDOC PROGRESS REPORT ---
Subjective-OB Progress Note for:: 07/30/19 Subjective: Doing well, ready to go home, hsb at BS, Physical Exam (OB) Vital Signs: Temp Pulse Resp BP Pulse Ox 97.7 F 80 18 112/50 L 97 07/30/19 07:47 07/30/19 07:47 07/30/19 07:47 07/30/19 07:47 07/30/19 07:47 Intake & Output 07/29/19 07/30/19 07/31/19 06:59 06:59 06:59 Intake Total 50 150 Output Total 1700 Balance 50 -1550 - PIH/Pre-Eclampsia DTR's: 1 + Clonus: Negative Headache: Absent Epigastric Pain: No Visual Changes: No - Lochia Lochia Amount: Scant < 10 ml Lochia Color: Rubra/Red - Abdomen Description: Soft, Round Hernia Present: No Fundal Description: Firm, Midline Fundal Height: u/u - u/2 Objective-Diagnostic Laboratory: 07/29/19 06:05 07/28/19 19:38 Assessment and Plan(PN) - Assessment and Plan (1) Gestational diabetes mellitus (GDM) controlled on oral hypoglycemic drug Qualifiers: Trimester: second trimester Qualified Code(s): O24.415 - Gestational diabetes mellitus in , controlled by oral hypoglycemic drugs Is this a current diagnosis for this admission?: Yes (2) hemorrhage Qualifiers: hemorrhage type: unspecified Qualified Code(s): O72.1 - Other immediate hemorrhage Is this a current diagnosis for this admission?: Yes (3) Vaginal delivery Is this a current diagnosis for this admission?: Yes (4) Pre-eclampsia Qualifiers: Trimester: third trimester Qualified Code(s): O14.93 - Unspecified pre-eclampsia, third trimester Is this a current diagnosis for this admission?: Yes - Time Spent with Patient Time with patient: Less than 15 minutes Medications reviewed and adjusted accordingly: Yes - Disposition Anticipated Discharge: Home Within: within 24 hours
--- NOTE | 2019-07-30 10:35 | PDOC DISCHARGE SUMMARY ---
Impression - Admit/DC Date/PCP Admission Date/Primary Care Provider: 07/27/19 17:46 ROSHAN NOEL MD Discharge Date: 07/30/19 - Discharge Diagnosis (1) Gestational diabetes mellitus (GDM) controlled on oral hypoglycemic drug Is this a current diagnosis for this admission?: Yes (2) hemorrhage Is this a current diagnosis for this admission?: Yes (3) Vaginal delivery Is this a current diagnosis for this admission?: Yes (4) Pre-eclampsia Is this a current diagnosis for this admission?: Yes - Additional Information Resuscitation Status: Full Code Discharge Diet: As Tolerated, Regular Discharge Activity: Activity As Tolerated, No Lifting Over 10 Pounds, No Lifting/Push/Pulling, Pelvic Rest Referrals: ROSHAN NOEL MD [Primary Care Provider] - (rtc 1 week pt did not get Rx to [facility], discarded) Prescriptions: Acetaminophen with Codeine [Tylenol #3 Tablet] 1 each PO Q4HP PRN #20 tablet PRN Reason: Ibuprofen [Motrin 800 mg Tablet] 800 mg PO Q8 #30 tablet Home Medications: Pnv No.95/Ferrous Fum/Folic AC [ Caplet] 1 tab PO DAILY 07/04/19 Sertraline HCl [Zoloft 50 mg Tablet] 50 mg PO DAILY 07/04/19 Acetaminophen with Codeine [Tylenol #3 Tablet] 1 each PO Q4HP PRN #20 tablet 07/29/19 Ferrous Sulfate [Feosol 325 mg Tablet] 325 mg PO BID #0 tablet 07/29/19 Ibuprofen [Motrin 800 mg Tablet] 800 mg PO Q8 #30 tablet 07/29/19 HPI Gestational Age: 37.2 Reason(s) for Admission: Induction of Labor, PIH, Gestional Diabetes Procedures: NST, Ultrasound Intrapartum Procedure(s): Spontaneous Vaginal Delivery Intrapartum Procedure Note: uterine atony Hospital Course Hospital Course: routine PP Results Laboratory Results: WBC 17.4 10^3/uL (4.0-10.5) H 07/29/19 06:05 RBC 3.15 10^6/uL (3.72-5.28) L 07/29/19 06:05 Hgb 9.2 g/dL (12.0-15.5) L 07/29/19 06:05 Hct 27.4 % (36.0-47.0) L 07/29/19 06:05 MCV 87 fl (80-97) 07/29/19 06:05 MCH 29.3 pg (27.0-33.4) 07/29/19 06:05 MCHC 33.8 g/dL (32.0-36.0) 07/29/19 06:05 RDW 14.2 % (11.5-14.0) H 07/29/19 06:05 Plt Count 226 10^3/uL (150-450) 07/29/19 06:05 Lymph % (Auto) Not Reportable 07/28/19 23:20 [place] % (Auto) Not Reportable 07/28/19 23:20 Eos % (Auto) Not Reportable 07/28/19 23:20 Baso % (Auto) Not Reportable 07/28/19 23:20 Absolute Neuts (auto) Not Reportable 07/28/19 23:20 Absolute Lymphs (auto) Not Reportable 07/28/19 23:20 Absolute Monos (auto) Not Reportable 07/28/19 23:20 Absolute Eos (auto) Not Reportable 07/28/19 23:20 Absolute Basos (auto) Not Reportable 07/28/19 23:20 Total Counted 100 07/28/19 23:20 Seg Neutrophils % Not Reportable 07/28/19 23:20 Seg Neuts % (Manual) 93 % (42-78) H 07/28/19 23:20 Lymphocytes % (Manual) 7 % (13-45) L 07/28/19 23:20 Monocytes % (Manual) 0 % (3-13) L 07/28/19 23:20 Eosinophils % (Manual) 0 % (0-6) 07/28/19 23:20 Basophils % (Manual) 0 % (0-2) 07/28/19 23:20 Abs Neuts (Manual) 20.4 10^3/uL (1.7-8.2) H 07/28/19 23:20 Abs Lymphs (Manual) 1.5 10^3/uL (0.5-4.7) 07/28/19 23:20 Abs Monocytes (Manual) 0.0 10^3/uL (0.1-1.4) L 07/28/19 23:20 Absolute Eos (Manual) 0.0 10^3/uL (0.0-0.6) 07/28/19 23:20 Abs Basophils (Manual) 0.0 10^3/uL (0.0-0.2) 07/28/19 23:20 Platelet Comment ADEQUATE 07/28/19 23:20 RBC Morph Comment NORMO-CYTIC/CHROMIC 07/28/19 23:20 PT 13.8 SEC (11.4-15.4) 07/28/19 19:38 INR 1.06 07/28/19 19:38 APTT 23.5 SEC (23.5-35.8) 07/28/19 19:38 Fibrinogen 487 mg/dL (209-497) 07/28/19 19:38 D-Dimer 2.76 ug/mL (0.00-0.50) H 07/28/19 19:38 Sodium 133.1 mmol/L (137-145) L 07/28/19 19:38 Potassium 4.3 mmol/L (3.6-5.0) 07/28/19 19:38 Chloride 107 mmol/L (98-107) 07/28/19 19:38 Carbon Dioxide 17 mmol/L (22-30) L 07/28/19 19:38 Anion Gap 9 (5-19) 07/28/19 19:38 BUN 9 mg/dL (7-20) 07/28/19 19:38 Creatinine 0.58 mg/dL (0.52-1.25) 07/28/19 19:38 Est GFR ( Amer) > 60 (>60) 07/28/19 19:38 Est GFR (MDRD) Non-Af > 60 (>60) 07/28/19 19:38 Glucose 97 mg/dL (75-110) 07/28/19 19:38 Calcium 9.2 mg/dL (8.4-10.2) 07/28/19 19:38 Total Bilirubin 1.0 mg/dL (0.2-1.3) 07/28/19 19:38 Direct Bilirubin 0.0 mg/dL (0.0-0.4) 07/28/19 19:38 Neonat Total Bilirubin Not Reportable 07/28/19 19:38 Neonat Direct Bilirubin Not Reportable 07/28/19 19:38 Neonat Indirect Bili Not Reportable 07/28/19 19:38 AST 41 U/L (14-36) H 07/28/19 19:38 ALT 52 U/L (<35) H 07/28/19 19:38 Alkaline Phosphatase 179 U/L (38-126) H 07/28/19 19:38 Total Protein 6.0 g/dL (6.3-8.2) L 07/28/19 19:38 Albumin 3.0 g/dL (3.5-5.0) L 07/28/19 19:38 Urine Color YELLOW 07/27/19 18:20 Urine Appearance CLEAR 07/27/19 18:20 Urine pH 5.0 (5.0-9.0) 07/27/19 18:20 Ur Specific [place] 1.015 07/27/19 18:20 Urine Protein NEGATIVE mg/dL (NEGATIVE) 07/27/19 18:20 Urine Glucose (UA) NEGATIVE mg/dL (NEGATIVE) 07/27/19 18:20 Urine Ketones 20 mg/dL (NEGATIVE) H 07/27/19 18:20 Urine Blood LARGE (NEGATIVE) H 07/27/19 18:20 Urine Nitrite NEGATIVE (NEGATIVE) 07/27/19 18:20 Urine Bilirubin NEGATIVE (NEGATIVE) 07/27/19 18:20 Urine Urobilinogen NEGATIVE mg/dL (<2.0) 07/27/19 18:20 Ur Leukocyte Esterase NEGATIVE (NEGATIVE) 07/27/19 18:20 Urine Ascorbic Acid NEGATIVE (NEGATIVE) 07/27/19 18:20 Urine Opiates Screen NEGATIVE 07/27/19 18:20 Urine Methadone Screen NEGATIVE 07/27/19 18:20 Ur Barbiturates Screen NEGATIVE 07/27/19 18:20 Ur Phencyclidine Scrn NEGATIVE 07/27/19 18:20 Ur Amphetamines Screen NEGATIVE 07/27/19 18:20 U Benzodiazepines Scrn NEGATIVE 07/27/19 18:20 Urine Cocaine Screen NEGATIVE 07/27/19 18:20 U Marijuana (THC) Screen NEGATIVE 07/27/19 18:20 RPR NONREACTIVE (NONREACTIVE) 07/27/19 19:37 Blood Type A POSITIVE 07/27/19 19:37 Blood Type Confirm A POSITIVE 07/28/19 19:38 Antibody Screen NEGATIVE 07/27/19 19:37 Crossmatch See Detail 07/27/19 19:37 Plan Health Concerns: routine Plan of Treatment: discharge home, ambulate Goals: no complications Time Spent: Less than 30 Minutes
== END 2019-07-30 14:51 | disposition home or self-care (01) | DRG 806 ==
LOC: LR 17:46 → 2S 07-28 21:22
PROVIDERS: ADMIT Obstetrics & Gynecology; ATTEND Obstetrics & Gynecology
PROC: 10E0XZZ Delivery of Products of Conception, External Approach (ICD-10-PCS; principal; 2019-07-28)
PROC: 3E033VJ Introduction of Other Hormone into Peripheral Vein, Percutaneous Approach (ICD-10-PCS; 2019-07-28)
PROC: 10907ZC Drainage of Amniotic Fluid, Therapeutic from Products of Conception, Via Natural or Artificial Opening (ICD-10-PCS; 2019-07-28)
DX: O24.425 Gestational diabetes mellitus in childbirth, controlled by oral hypoglycemic drugs (principal); O72.1 Other immediate postpartum hemorrhage; Z37.0 Single live birth; O69.1XX0 Labor and delivery complicated by cord around neck, with compression, not applicable or unspecified; O14.04 Mild to moderate pre-eclampsia, complicating childbirth; Z88.0 Allergy status to penicillin; Z3A.37 37 weeks gestation of pregnancy
CPT/HCPCS: 1967; 36415; 80053; 80307; 81005; 85025; 85027; 85379; 85384; 85610; 85730; 86592; 86850; 86900; 86901; 86920; J2405; J2590; J3010; J3490; J7050